=== PATIENT | male | born 1940 | race Hispanic/Latino ===

== ENCOUNTER 2017-10-24 22:54 | Emergency (ER) | payer SELFPAY ==
[~2017-10-24] VITALS: Ht 160 cm; Wt 65.9 kg
[2017-10-24] MEDS ORDERED: CORDARONE/200 MG/TAB PO (23:06)
[2017-10-24] MEDS ORDERED: ASPIRIN CHEWABL81 MG PO (23:06)
[2017-10-24 23:40] LABS: HEMATOCRIT 42.7 % (39.0-50.0); HEMOGLOBIN 14.9 g/dl (14.0-18.0); IMMATURE GRANULOCYTES 0.7 % (0.0-1.0); MEAN CELL VOLUME 94.3 fL CALC (80.0-100.0); MEAN CORPUSCULAR HGB 32.9 pG CALC (26.0-32.0); MEAN CORPUSCULAR HGB CONC 34.9 g/L CALC (32.0-36.0); NEUT# 5.45 thou/uL (1.82-7.42); RED BLOOD COUNT 4.53 mill/uL (4.70-6.10); RED CELL DISTRI WIDTH 13.4 % (11.5-15.5)
[2017-10-24 23:51] LABS: ALBUMIN 4.1 g/dL (3.2-5.0); ALKALINE PHOSPHATASE 109 u/l (38-126); ANION GAP 18 (6-22 (CALC)); BILIRUBIN, TOTAL 0.9 mg/dL (0.0-1.4); BUN 21 mg/dL (8-23); BUN/CREATININE RATIO 24 (12-20 (CALC)); CARBON DIOXIDE 24 mmol/l (22-30); CHLORIDE 105 mmol/l (95-108); CREATININE 0.9 mg/dL (0.7-1.3); GFR > 60 ML/MIN (>=60 (CALC)); GFR FOR AFR.AMER. > 60 ML/MIN (>=60 (CALC)); POTASSIUM 3.8 mmol/l (3.5-5.1); SGOT/AST 26 u/l (19-48); SGPT/ALT 36 u/l (11-66); SODIUM 143 mmol/l (137-146); TOTAL PROTEIN 7.2 g/dL (6.3-8.2)
[2017-10-25] MEDS ORDERED: Levaquin PO (01:07)
[2017-10-25 02:35] VITALS: BP 110/57
== END 2017-10-25 02:36 | disposition home or self-care (01) | DRG 195 ==
LOC: ED 22:54
PROVIDERS: Family Medicine
DX: J18.9 Pneumonia, unspecified organism (principal); I25.2 Old myocardial infarction; Z95.0 Presence of cardiac pacemaker
CPT/HCPCS: J1956